=== PATIENT | female | born 2000 | race Caucasian/White ===

== ENCOUNTER → 2024-02-04 10:53 | Outpatient (REF) | payer OTHER, SELFPAY | LOC: MRI 3T 10:53 | PROVIDERS: ATTENDING PHYSICIAN Orthopaedic Surgery; FAMILY PHYSICIAN Internal Medicine | DX: M48.56XA Collapsed vertebra, not elsewhere classified, lumbar region, initial encounter for fracture (principal) | CPT/HCPCS: 72148 ==